=== PATIENT | male | born 1980 | race Caucasian/White ===

== ENCOUNTER 2022-06-25 10:29 | Emergency (ER) | payer SELFPAY ==
[~2022-06-25 10:29] MED LIST: AUGMENTIN 875-1 EACH PO; NORCO 7.5-3251 EACH PO
== END 2022-06-25 12:29 | disposition left against medical advice (07) ==
LOC: ER1 10:29
DX: Z53.21 Procedure and treatment not carried out due to patient leaving prior to being seen by health care provider (principal)